=== PATIENT | female | born 1970 | race Caucasian/White ===

== ENCOUNTER 2017-04-25 09:25 | Emergency (ER) | payer OTHER ==
[~2017-04-25] VITALS: Ht 170.2 cm; Wt 92.6 kg
[~2017-04-25 09:25] MED LIST: Motrin PO; Normodyne,Trandate PO; Percocet 5/325,Endoc PO
[2017-04-25 10:25] LABS: HEMATOCRIT 42.4 % (36.0-46.0); MCH 27.9 PG (29.0-34.0); MCHC 32.5 G/DL (30.0-36.0); MCV 85.8 FL (83-99); PLATELET COUNT 333 K/uL (156-360); RBC DIS.WIDTH-CV 13.7 % (11.8-14.6); RBC DIS.WIDTH-SD 42.5 % (39-53); RED BLOOD COUNT 4.94 M/uL (3.80-5.20); WHITE BLOOD COUNT 9.2 K/uL (4.1-10.2)
[2017-04-25 10:37] LABS: CHLORIDE 107 mEq/L (99-109); POTASSIUM 4.3 mEq/L (3.7-5.4); SODIUM 139 mEq/L (136-147)
[2017-04-25 10:39] LABS: GLUCOSE 94 mg/dL (70-99)
[2017-04-25 10:40] LABS: ANION GAP 8 MEQ/L (2-14)
[2017-04-25 10:41] LABS: TOTAL BILIRUBIN 0.3 mg/dL (0.0-1.0)
[2017-04-25 10:43] LABS: ALKALINE PHOSPHATASE 65 IU/L (3-129); GFR ESTIMATE (CALCULATED) > 59 mL/min/
[2017-04-25 10:44] LABS: UREA NITROGEN (BUN) 11 mg/dL (9-23)
[2017-04-25 10:55] LABS: QUANTITATIVE HCG < 4.0 MIU/ML
[2017-04-25 13:23] LABS: LIPASE 23 U/L (1.0-51.0)
[2017-04-25] MEDS ORDERED: BENTYL10 MG PO (13:35)
[2017-04-25 14:12] LABS: ADD MIUA? YES; BILIRUBIN NEGATIVE; BLOOD NEGATIVE; COLOR STRAW ((YELLOW)); GLUCOSE (STRIP) NEGATIVE; KETONES 5; LEUKOCYTES TRACE; NITRITE NEGATIVE; PROTEIN (STRIP) NEGATIVE; UROBILINOGEN 0.2 MG/DL (0.2-1.0)
[2017-04-25 14:16] LABS: BACTERIA NONE SEEN /HPF; EPITHELIAL CELLS RARE /HPF; MUCUS NONE SEEN /LPF; RED BLOOD CELLS 0-5 /HPF (0-5); UCUL ADDED? NO; WHITE BLOOD CELLS 0-5 /HPF (0-5)
[2017-04-25 14:30] VITALS: BP 136/65
== END 2017-04-25 14:35 | disposition home or self-care (01) ==
LOC: EME 09:25
DX: R10.84 Generalized abdominal pain (principal); N83.202 Unspecified ovarian cyst, left side; K58.9 Irritable bowel syndrome, unspecified; E06.3 Autoimmune thyroiditis; F41.9 Anxiety disorder, unspecified
CPT/HCPCS: 74177; 80053; 81003; 83690; 84702; 85027; 99281; 99284; J7030